=== PATIENT | male | born 1995 | race Caucasian/White ===

== ENCOUNTER → 2022-12-03 17:22 | Outpatient (BNVA) | payer MEDICAID, SELFPAY | PROVIDERS: Family Provider Nurse Practitioner Family; Visit Provider Registered Nurse Neonatal Intensive Care | DX: J02.9 Acute pharyngitis, unspecified (principal) | CPT/HCPCS: 87071; 87880 ==

== ENCOUNTER 2024-12-21 23:49 | Emergency (ER) | payer MEDICAID, SELFPAY ==
[2024-12-22 00:14] VITALS: BP 104/70; PULSE 93; RESP 18; TEMP 37.3; O2SAT 97; BMI 21.1
[2024-12-22 01:02] LABS: Covid PCR NEGATIVE (Negative); Influenza A POSITIVE (Negative); Influenza B NEGATIVE (Negative); Respiratory Syncytial Virus Ce NEGATIVE (Negative)
--- NOTE | 2024-12-22 01:31 | W.ED.URI ---
HPI - URI/Sore Throat General: Chief Complaint: Upper Respiratory Infection Stated Complaint: fever whole body aches coughing Time Seen by Provider: 12/22/24 01:10 Source: patient Mode of arrival: ambulatory Limitations: no limitations History of Present Illness: Patient is a 29-year-old male who presents to ED today with complaint of subjective fevers, chills, body aches, fatigue, sore throat, cough, congestion. He has been around individuals with similar symptoms. MD elicited complaint: fever, cough, sore throat, rhinorrhea and nasal congestion Onset (ago): day(s) Consistency: constant Severity: moderate Description of mucous: clear Able to tolerate fluids by mouth: Yes Exacerbating factors: nothing Relieving factors: nothing Context: sick contacts Associated symptoms: Reports chills, fever(s), headache(s) and nasal congestion; Deny chest pain, diarrhea, ear or mastoid pain or vomiting Treatments prior to arrival: none Related Data Previous Rx's Medication Instructions Recorded amoxicillin 875 mg-potassium 1 tab PO BID 7 days #14 tabs 12/03/22 clavulanate 125 mg tablet prednisone 20 mg tablet 20 mg PO DAILY 5 days #5 tabs 12/03/22 Allergies Allergy/AdvReac Type Severity Reaction Status Date / Time aripiprazole [From Abiliy] Allergy Intermediate ADR-Dizzine Verified 12/22/24 00:17 ss Review of Systems Const: Reports: fever(s), chills and body aches Eyes: Denies: change in vision, blurry vision, photophobia, eye discomfort, eye discharge, eye redness, floaters or seeing flashes ENMT: Reports: nasal discharge and nasal congestion; Denies: ear or mastoid pain Card: Denies: chest pain Resp: Reports: non-productive cough and chest congestion; Denies: dyspnea, wheezing or hemoptysis GI: Denies: vomiting or diarrhea Musc: Denies: neck pain Skin/Breast: Denies: rash Neuro: Reports: headache(s) Physical Exam Const: COMMON NORMALS: no acute distress, average body habitus, patient oriented x3, no limitations, healthy appearing, alert and well nourished GENERAL APPEARANCE: cooperative ORIENTATION/CONSCIOUSNESS: Yes awake, Yes oriented to person, Yes oriented to place and Yes oriented to time HENMT: COMMON NORMALS: normocephalic, atraumatic, hearing grossly normal bilaterally, external ears normal, EAC's normal, TM's normal bilaterally, Normal external nose present, Normal nasal mucous membranes and turbinates present, moist oral mucous membranes and oropharynx normal HEAD & SCALP: normal to inspection, normocephalic and atraumatic FACE & SINUS: normal facial exam and sinuses nontender NOSE: Normal external nose present and Normal nasal mucous membranes and turbinates present EXTERNAL EAR: Yes external ears normal EXTERNAL AUDITORY CANAL: EAC's normal TYMPANIC MEMBRANE: TM's normal bilaterally THROAT: posterior oropharynx normal, tonsils normal and uvula midline Eye: COMMON NORMALS: Equal, round and reactive pupils present, EOMs intact bilaterally and conjunctivae normal CONJUNCTIVA: Yes conjunctivae normal PUPIL: Yes Equal, round and reactive pupils present Neck/C-Spine: COMMON NORMALS: no lymphadenopathy Resp: COMMON NORMALS: normal respiratory effort and clear to auscultation bilaterally AUSCULTATION: clear to auscultation bilaterally Cardio: COMMON NORMALS: regular rate and regular rhythm RATE: regular rate RHYTHM: regular rhythm Neuro: COMMON NORMALS: patient oriented x3 SENSORIUM/ORIENTATION: Yes alert, Yes oriented to person, Yes oriented to place and Yes oriented to time Course Vital Signs: Vital signs: Vital Signs Temperature 99.2 F 12/22/24 00:14 Pulse Rate 93 12/22/24 00:14 Respiratory Rate 18 12/22/24 00:14 Blood Pressure 104/70 12/22/24 00:14 Pulse Oximetry 97 12/22/24 00:14 Oxygen Delivery Me thod Room Air 12/22/24 00:14 MDM - URI/Sore Throat Medical Decision Making Patient with signs and symptoms of influenza. He is positive for influenza A. Spoke about conservative therapies at home for treatment. Return to ED precautions discussed. Differential Diagnosis Likely upper respiratory infection, viral infection, bronchitis, influenza and pharyngitis Medical Records I reviewed the patient's medical records. Lab Data I reviewed the patient's lab results. Laboratory Results Coronavirus (PCR) Negative (Negative) 12/22/24 00:21 Influenza A (PCR) Positive (Negative) 12/22/24 00:21 Influenza Type B (PCR) Negative (Negative) 12/22/24 00:21 RSV (PCR) Negative (Negative) 12/22/24 00:21 No radiology studies performed this visit Discharge Plan Discharge Patient Disposition: Home Clinical Impression: Influenza A Condition: Stable Prescriptions: No Action amoxicillin-pot clavulanate 875-125 mg tablet 1 tab PO BID 7 Days Qty: 14 0RF prednisone 20 mg tablet 20 mg PO DAILY 5 Days Qty: 5 0RF Discharge Orders: Discharge ED (Routine); Ordered 12/22/24 Ordered By: Kaylan Deleon Referrals: Gibson,KIMO AguiarN [Primary Care Provider] - Patient Instructions: Influenza (DC) Stand Alone Forms: Work/School Release Coding Level of Care Code ED Merchandise Flow Team Member for Walt Alarcon
== END 2024-12-22 01:52 | disposition home or self-care (01) ==
PROVIDERS: Emergency Medicine; Emergency Provider Physician Assistant; PCP Nurse Practitioner Family
DX: J10.1 Influenza due to other identified influenza virus with other respiratory manifestations (principal); Z11.52 Encounter for screening for COVID-19
CPT/HCPCS: 87637; 99283